=== PATIENT | female | born 2005 | race Caucasian/White ===

== ENCOUNTER 2023-06-24 11:11 | Outpatient (CLI) | payer OTHER | END 2023-06-24 11:12 | disposition home or self-care (01) | LOC: BICMRI 11:11 | PROVIDERS: ATTEND Orthopaedic Surgery | DX: S89.92XA Unspecified injury of left lower leg, initial encounter (principal); S83.242A Other tear of medial meniscus, current injury, left knee, initial encounter; M25.862 Other specified joint disorders, left knee ==

== ENCOUNTER 2023-10-03 14:07 | Outpatient (CLI) | payer OTHER ==
[2023-10-03 14:53] LABS: #Basophils 0.05 10x3/uL (0.0-0.2); #Eosinphils 0.08 10x3/uL (0.0-0.5); #Monocytes 0.53 10x3/uL (0.0-1.1); %Basophils 0.5 % (0.0-2.0); %Eosinophils 0.8 % (0.0-6.0); %Lymphocytes 21.6 % (18.0-47.0); %Monocytes 5.3 % (0.0-10.0); %Neutrophils 71.6 % (40.0-75.0); Hematocrit 38.2 % (34.9-44.5); Hemoglobin 12.8 g/dL (12.0-15.5); Mean Corpuscular HGB CONC 33.5 g/dL (32.0-36.0); Mean Corpuscular Hemoglobin 31.1 pg (27.0-33.0); Mean Corpuscular Volume 92.9 fL (81.6-98.3); Mean Platelet Volume 9.8 fL (7.4-10.4); Platelet Count 307 10x3/uL (150-450); RBC Distribution Width 12.4 % (11.5-14.5); Red Blood Cell (RBC) Count 4.11 10x6/uL (3.90-5.03); White Blood Cell (WBC) Count 10.1 10x3/uL (3.5-10.5)
[2023-10-03 15:09] LABS: BHCG - Serum Negative (NEGATIVE); Pregs Control Background? CLEAR/WHITE (CLR/WHITE); Pregs Control Bar Appear? YES (CONTROL BAR)
== END 2023-10-03 14:08 | disposition home or self-care (01) ==
LOC: LABBT 14:07
PROVIDERS: ATTEND Orthopaedic Surgery
DX: Z01.812 Encounter for preprocedural laboratory examination (principal); S83.242A Other tear of medial meniscus, current injury, left knee, initial encounter
CPT/HCPCS: 84703; 85025

== ENCOUNTER 2023-10-04 06:06 | Day surgery (SDC) | payer OTHER ==
[2023-10-03 14:45] VITALS: BMI 28.3
[2023-10-04] MEDS ORDERED: Midazolam HCl 2 mg/2 ml Vial ONE (06:41)
[2023-10-04] MEDS ORDERED: PROPOFOL 20 ML ONE ×2 (06:41→07:03)
[2023-10-04] MEDS ORDERED: fentaNYL PF 100 MCG/2 ML SYRINGE ONE (06:41)
[2023-10-04] MEDS ORDERED: Dexamethasone 4 mg/ml Vial ONE (06:41)
[2023-10-04] MEDS ORDERED: Ondansetron PF 4 MG/2 ML Vial ONE (06:41)
[2023-10-04] MEDS ORDERED: Lidocaine 2% PF 5 ML VIAL ONE (07:02)
[2023-10-04] MEDS ORDERED: fentaNYL 50 mcg/mL 1 mL Vial ONE (07:02)
[2023-10-04] MEDS ORDERED: Bupivacaine PF 0.5% 30 ML VIAL ONE (07:03)
[2023-10-04] MEDS ORDERED: CEFAZOLIN 2 GM VIAL ONE (07:18)
[2023-10-04] MEDS ORDERED: Sodium Chloride 0.9% 100 ML ONE (07:19)
[2023-10-04] MEDS ORDERED: Bupivacaine HCl 0.5%/Epinephrine 1:200,000/PF 30 ml Vial ONE (07:23)
[2023-10-04] MEDS ORDERED: Meperidine HCl/PF 25 MG (1 mL) VIAL ONE (09:13)
== END 2023-10-04 11:24 | disposition home or self-care (01) ==
LOC: SDC 06:06
PROVIDERS: ATTEND Orthopaedic Surgery
PROC: 0SQD4ZZ Repair Left Knee Joint, Percutaneous Endoscopic Approach (ICD-10-PCS; principal; 2023-10-04)
DX: S83.242A Other tear of medial meniscus, current injury, left knee, initial encounter (principal); X58.XXXA Exposure to other specified factors, initial encounter
CPT/HCPCS: C1713; J0665; J1100; J2001; J2175; J2250; J2405; J2704; J3010; J3490